=== PATIENT | male | born 1970 | race Native Hawaiian/Other Pacific Islander ===

== ENCOUNTER 2017-07-31 06:29 | Emergency (ER) | payer MEDICAID, OTHER ==
[~2017-07-31] VITALS: Ht 167.6 cm; Wt 64.0 kg
--- NOTE | 2017-07-31 06:30 | NUR ---
PT [facility] AT [facility], PER RA PT "FOUND PASSED OUT ON THE GROUND" FIELD BP 77/68. NO TRAUMA NOTED. PT AOX3 RR EVEN AND UNLABORED. NO SOB NOTED. NAD NOTED. NO NVD AT THIS TIME. PT GOWNED AND PLACED ON MONITOR. PER RA PLACED IV ON LEFT AC 20G. INTACT AND PATENT. PLACED ON H/L. PER RA GAVE IV BOLUS OF 450 NS PHYSICIAN GENERAL INTERNAL MEDICINE, WITH IMPROVED BP TO 112/58. PT WAITING FOR MD TRIPLETT.
--- NOTE | 2017-07-31 06:36 | NUR ---
DR. CHRISTENSEN AT BEDSIDE FOR EVAL.
--- NOTE | 2017-07-31 06:45 | NUR ---
CALLED NUTRITION FOR BREAKFAST, OKAY PER DR. CHRISTENSEN.
--- NOTE | 2017-07-31 06:55 | NUR ---
BLOOD DRAW SENT TO LAB
[2017-07-31] MEDS ORDERED: IV NS 0.9% 1,000 ML BAG IV ONE (07:00)
--- NOTE | 2017-07-31 07:06 | NUR ---
REPORT GIVEN TO SHANA OLVERA FOR ZACK
[2017-07-31 07:11] LABS: CALCIUM, SERUM 8.7 mg/dL (8.5-10.1); CARBON DIOXIDE 25 mmol/L (21-32); CHLORIDE 104 mmol/L (98-107); CREATININE 1.2 mg/dL (0.6-1.3); GLUCOSE 133 mg/dL (74-106); POTASSIUM 3.4 mmol/L (3.5-5.1); SODIUM SERUM 140 mmol/L (136-145); UREA NITROGEN, BLOOD 16 mg/dL (7-18)
--- NOTE | 2017-07-31 07:15 | NUR ---
RADIOLOGY AT BEDSIDE FOR EVAL.
[2017-07-31 07:19] LABS: TROPONIN I < 0.017 ng/mL (0.00-0.056)
[2017-07-31 07:34] LABS: BASOPHILS % (AUTO) 0.4 % (0.0-2.0); EOSINOPHILS % (AUTO) 2.5 % (0.0-6.0); HEMATOCRIT 44 % (39-51); HEMOGLOBIN 14.8 g/dL (13.5-17.5); LYMPHOCYTES % (AUTO) 20.6 % (20.0-44.0); MEAN CORPUSCULAR HGB CONC 34 g/dl (31.0-36.0); MEAN CORPUSCULAR VOLUME 84 fL (80-96); MONOCYTES % (AUTO) 10.8 % (2.0-12.0); NEUTROPHILS % (AUTO) 65.7 % (43.0-81.0); PLATELET COUNT (AUTO) 223 /CMM (150-450); RDW COEFFICIENT OF VARIATION 13.1 (11.5-15.0); RED BLOOD CELL COUNT(AUTO) 5.23 MIL/uL (4.5-6.0); WHITE BLOOD COUNT (AUTO) 8.9 K/uL (4.3-11.0)
[2017-07-31 07:35] LABS: LYMPHOCYTES # (AUTO) 1.8 /CMM (0.8-4.8); NEUTROPHILS # (AUTO) 5.8 /CMM (1.8-8.9)
--- NOTE | 2017-07-31 08:23 | NUR ---
IV removed. Catheter intact and site benign. Pressure and 4x4 applied to site. No bleeding noted.
--- NOTE | 2017-07-31 08:23 | NUR ---
Patient discharged to home in stable condition. Written and verbal after care instructions given. Patient verbalizes understanding of instruction.
[2017-07-31 08:31] VITALS: BP 110/80
== END 2017-07-31 08:31 | disposition home or self-care (01) ==
LOC: ER 06:31
DX: R55 Syncope and collapse (principal)
CPT/HCPCS: 36415; 71045; 80048; 84484; 85025; 93005; J7030; A4606; Z7610